=== PATIENT | male | born 1945 | race Two or more races ===

== ENCOUNTER → 2017-07-12 | Emergency (ER) | payer OTHER ==
[~2017-07-12] VITALS: Ht 172.7 cm; Wt 106.6 kg
[~2017-07-12] MED LIST: ACTOS15 MG; ALTACE5 MG; CRESTOR40 MG; FORTAMET1000 MG; HUMULIN 70100 UNIT/2; PRILOSEC OTC20 MG
== END | disposition home or self-care (01) ==
LOC: ER 16:18
DX: G89.18 Other acute postprocedural pain (principal); R10.84 Generalized abdominal pain; L76.34 Postprocedural seroma of skin and subcutaneous tissue following other procedure